=== PATIENT | female | born 1965 | race Caucasian/White ===

== ENCOUNTER 2024-09-12 15:40 | Emergency (ER) | payer SELFPAY ==
--- NOTE | ~2024-09-12 | XR_ITS ---
EXAMINATION: XR chest 2V Exam Date/Time: 09/12/2024 16:35 GRAPHICS COORDINATOR HISTORY: Cough x 12 days,+smoker Comparison: None. RESULT: Lines, tubes, and devices: None. Lungs and pleura: Hemidiaphragm flattening as can be seen with emphysematous change. Otherwise clear . Cardiomediastinal silhouette: Unremarkable. Other: No acute osseous or upper abdominal finding. IMPRESSION: No acute cardiopulmonary process. Reviewed, dictated and finalized at location K. HICS COORDINATOR
[2024-09-12 16:03] VITALS: BP 167/92; PULSE 91; RESP 20; TEMP 36.2; O2SAT 96
--- NOTE | 2024-09-12 16:31 | ED_ITS ---
HPI - URI/Sore Throat General Chief Complaint: Upper Respiratory Infection Stated Complaint: congestion,cough Time Seen by Provider: 09/12/24 16:31 Source: patient, RN notes reviewed and old records reviewed Mode of arrival: ambulatory Limitations: no limitations History of Present Illness HPI Narrative: 59-year-old female presents to the [facility] with complaints of cough and congestion for the last 12-13 days. Reports that last week she felt like everything move to or chest. Patient is a smoker. Has had increased mucus production. Denies any chest pain. Reports intermittent shortness of breath. Patient has not had any treatment for her symptoms since Monday. Prior to Monday she has tried taking Mucinex Onset (ago): day(s) (-) Treatments prior to arrival: cold medicine Related Data Allergies Allergy/AdvReac Type Severity Reaction Status Date / Time No Known Allergies Allergy Verified 09/12/24 16:37 Review of Systems Review of Systems: All systems reviewed & are unremarkable except as noted in HPI and below Constitutional: Constitutional: Reports no additional constitutional complaints ENT: Reports system reviewed and no additional complaints, except as documented Cardiovascular: Cardiovascular: Reports no additional cardiovascular complaints, Denies chest pain and Denies dyspnea Respiratory: Respiratory: Reports as per HPI, Reports chest congestion, Reports cough, Reports dyspnea and Reports wheezing Musculoskeletal: Musculoskeletal: Reports no additional musculoskeletal complaints Integumentary/Breasts: Skin/Breast: Reports system reviewed and no additional complaints, except as docu [facility] Social History Social History (Updated 09/12/24 @ 18:42 by Eleni Giron, CUSTOMER SERVICER) Smoking packs per day: 1 Smoking cigarettes per day: 20.0 Comments At the time of my signature, I reviewed and agree with the nursing past medical, surgical, social, and family history. There is no relevant family history pertinent to the patient complaint. Exam Const: General: cooperative, healthy appearing, comfortable, no acute distress, well developed, alert and well nourished Nutritional Appearance: well nourished Orientation/consciousness: patient oriented x3 Limitations: no limitations HENMT: Head: normal to inspection Ears: hearing grossly normal bilaterally, external ears normal, TM's normal bilaterally, EAC's normal, mastoids normal and no periauricular adenopathy Face and sinus: normal facial exam and face symmetric Throat: posterior oropharynx normal, uvula midline, postnasal drainage and no uvular edema Eyes: General: appearance normal, both eyes and all related structures Neck: Neck: normal visual inspection, full ROM, no lymphadenopathy and no meningeal signs Chest: Chest palpation & inspection: normal inspection of the chest Resp: Effort & Inspection: normal respiratory effort and able to speak in complete sentences Auscultation: crackles, no rales, no rhonchi and wheezes expiratory wheezes, inspiratory wheezes and throughout Cardio: Rate: regular rate Skin: General skin exam: normal color and no rashes or lesions noted Neuro: General: patient oriented x3, gait normal, moves all extremities and no meningeal signs Cognition (Neuro): normal cognition Speech: normal speech Gait exam (Neuro): Normal gait present Extrem: General: normal to inspection, full ROM, capillary refill normal and normal gait Psych: Appearance: grossly normal and well kempt Mental Status: mental status grossly normal Speech and movement: Normal speech and movement present and Clear speech present Affect: normal affect Attitude: cooperative Course Course Level of Care: Express Care Visit Vital Signs Vital signs: Vital Signs Temperature 97.2 F L 09/12/24 16:03 Pulse Rate 91 09/12/24 16:03 Respiratory Rate 20 09/12/24 16:03 Blood Pressure 167/92 H 09/12/24 16:03 Pulse Oximetry 96 09/12/24 16:03 Oxygen Delivery Room Air 09/12/24 16:03 Temperature 97.2 F L 09/12/24 16:03 Pulse Rate 91 09/12/24 16:03 Respiratory Rate 20 09/12/24 16:03 Blood Pressure 167/92 H 09/12/24 16:03 Pulse Oximetry 96 09/12/24 16:03 Oxygen Delivery Room Air 09/12/24 16:03 Reviewed MDM - URI/Sore Throat MDM Narrative Medical decision making narrative: Patient sitting comfortably in exam. Nontoxic, vitals stable. Patient in no acute distress. Patient presents with 12-13 day history of cough, congestion. Denies any chest pain currently. Denies fevers. Patient denies any medical history. Patient's chest x-ray was negative for acute findings, improvement of breath sounds after breathing treatment. Patient also verbalized that she is breathing a little bit easier. Mild expiratory wheezing noted to the left upper post breathing treatment otherwise lungs were clear but diminished. Patient appropriate for outpatient treatment and follow-up Discharge instructions reviewed with patient, as well as provided in writing per nursing staff. The instructions also include specific and strict return/GO TO THE ER as well as f/u information. All questions have been answered, and the patient deny any further questions with discharge and discharge plan. Some parts of this dictation were generated by voice recognition software and may contain typographical and/or grammatical inaccuracies. Differential Diagnosis Differential diagnosis: Likely upper respiratory infection, otitis media, sinusitis, viral infection and influenza Imaging Data Radiologist's impression: EXAMINATION: XR chest 2V Exam Date/Time: 09/12/2024 16:35 FIELD TRAINER HISTORY: Cough x 12 days,+smoker Comparison: None. RESULT: Lines, tubes, and devices: None. Lungs and pleura: Hemidiaphragm flattening as can be seen with emphysematous change. Otherwise clear. Cardiomediastinal silhouette: Unremarkable. Other: No acute osseous or upper abdominal finding. IMPRESSION: No acute cardiopulmonary process. Critical Care Time Critical Care Time Critical Care Time: No Discharge Plan Discharge Clinical Impression: Bronchitis Emphysema lung Qualifiers: Emphysema type: unspecified Qualified Code(s): J43.9 - Emphysema, unspecified Patient Disposition: Home, Self-Care Condition: Stable Instructions: Antibiotic Form, Acute Bronchitis (ED), Emphysema (ED) Additional Instructions: Take medications as prescribed A your x-ray had concerning findings for emphysema. It is important to stop smoking, follow up with primary care provider and/or licensed appraiser for further evaluation. Handouts have been given for you for primary care provider If you are having a hard time finding a physician please call our [facility] group liaison at [phone]. For new or worsening symptoms go directly to the emergency room Patient Language: Serbian Prescriptions: New prednisone 20 mg tablet See Rx Instructions .Route .COMPLEX Qty: 18 0RF Rx Instructions: Take 60 mg daily for 3 days, 40 mg daily for 3 days, 20 mg daily for 3 days doxycycline monohydrate 100 mg tablet 100 mg PO BID Qty: 14 0RF albuterol sulfate 90 mcg/actuation HFA aerosol inhaler 2 puff inhalation QID PRN (Reason: shortness of breath or wheezing) Qty: 6.7 0RF (DME) Aerochamber MV Spacer See Rx Instructions .Route Qty: 1 0RF Rx Instructions: As directed Follow-up/Referrals: Franck Morales MD [Physician] - 2 Weeks PHYSICIAN,BEHAVIORIST [Primary Care Provider] - Stand Alone Forms: Work/School Release IP Time of Disposition: 17:17
[2024-09-12] MEDS: IPRATROPIUM 0.5 MG/ALBUTEROL SULFATE 2.5 MG AMPUL.NEB 3 ML INHALATION (16:43)
== END 2024-09-12 17:25 | disposition home or self-care (01) ==
PROVIDERS: Emergency Provider Nurse Practitioner
DX: J40 Bronchitis, not specified as acute or chronic (principal); J43.9 Emphysema, unspecified; F17.210 Nicotine dependence, cigarettes, uncomplicated
CPT/HCPCS: 71046; 99203; G0463

== ENCOUNTER 2024-11-27 13:22 | Emergency (ER) | payer SELFPAY ==
--- NOTE | ~2024-11-27 | XR_ITS ---
EXAMINATION: XR wrist LT min 3V DATE: 11/27/2024 13:52 INDICATION: Left wrist pain. TECHNIQUE: 4 views of left wrist were obtained. COMPARISON: None. FINDINGS: Alignment is normal. No fracture. There is mild osteoarthritis of first carpometacarpal hermila nt and first metacarpophalangeal joint. IMPRESSION: 1. Mild polyarticular osteoarthritis. Reviewed, dictated and finalized at location B.
[2024-11-27 13:30] VITALS: BP 191/120; PULSE 103; RESP 16; TEMP 37.1; O2SAT 99
--- NOTE | 2024-11-27 13:32 | ED_ITS ---
HPI - Extremity Injury (Upper) General Chief Complaint: Extremity Injury, Upper Stated Complaint: Left Arm/Wrist Pain Time Seen by Provider: 11/27/24 13:32 Source: patient Mode of arrival: ambulatory Limitations: no limitations History of Present Illness HPI narrative: 59-year-old female presents with complaint of pain to left wrist. Patient reports that she fell 6 weeks ago and put left hand down to catch her fall. Has had pain with movement for the past 6 weeks. Has been taking ibuprofen, Advil for left wrist pain. A friend told her today that if you have a fracture you need to get that fixed . Patient's blood pressure elevated in triage. Denies history of hypertension. Does not currently have a primary care physician. No headache, chest pain or shortness of breath. All systems reviewed and negative except as noted above. Related Data Allergies Allergy/AdvReac Type Severity Reaction Status Date / Time No Known Allergies Allergy Verified 11/27/24 13:27 Review of Systems Review of Systems: CONSTITUTIONAL: Denies fever, chills, or sweats. EYES: Denies visual changes, redness, or discharge. ENT: Denies rhinorrhea, congestion, sore throat, or otalgia. CARDIOVASCULAR: Denies chest pain, palpitations, or edema. RESPIRATORY: Denies cough or dyspnea. GASTROINTESTINAL: Denies abdominal pain, nausea, vomiting, or diarrhea. GENITOURINARY: Denies dysuria or hematuria. SKIN: Denies rash or itching. MUSCULOSKELETAL: Denies back pain, joint pain, or myalgia. Reports left wrist pain. NEUROLOGIC: Denies headache, numbness, or weakness. PSYCHIATRIC: Denies anxiety or depression. All other systems reviewed are negative, except as documented in HPI. PMFSH Social History Social History (Updated 09/12/24 @ 18:42 by Eleni Giron APRN) Smoking packs per day: 1 Smoking cigarettes per day: 20.0 Comments At time of signature, agree with nursing past medical, surgical, social and family history. There is no relevant family history pertinent to the presenting complaint. Exam Narrative: GENERAL: This is a well-nourished, well-developed patient, in no apparent distress. HEAD: normocephalic, atraumatic. EYES: PERRL. Sclera clear/white. Vision is grossly intact. EARS: External ears normal NOSE: External nose normal NECK: Neck supple, non-tender without lymphadenopathy, masses or thyromegaly. CARDIOVASCULAR: Regular rate and rhythm without murmurs, gallops, or rubs. RESPIRATORY: Clear to auscultation. Breath sounds equal bilaterally. No wheezes, rales, or rhonchi. SKIN: warm, Dry, intact with no suspicious lesions or rash, good texture and turgor. NEURO: awake, alert, and oriented to person, place and time. There were no obvious focal neurologic abnormalities. EXTREMITIES: Generalized tenderness to left wrist. No deformity or bruising. Distal neurovascularly intact. Course Course Level of Care: Express Care Visit Vital Signs Vital signs: Vital Signs Temperature 37.1 C 11/27/24 13:30 Pulse Rate 103 H 11/27/24 13:30 Respiratory Rate 16 11/27/24 13:30 Blood Pressure 191/120 H 11/27/24 13:30 Pulse Oximetry 99 11/27/24 13:30 Oxygen Delivery Room Air 11/27/24 13:30 Temperature 37.1 C 11/27/24 13:30 Pulse Rate 103 H 11/27/24 13:30 Respiratory Rate 16 11/27/24 13:30 Blood Pressure 191/120 H 11/27/24 13:30 Pulse Oximetry 99 11/27/24 13:30 Oxygen Delivery Room Air 11/27/24 13:30 Reviewed MDM - Extremity Injury (Upper) MDM Narrative Medical decision making narrative: x-ray of left wrist negative for fracture. Patient's BP elevated today. Asymptomatic. Does not have a primary care physician. Will prescribe amlodipine. Recommend follow-up with primary care physician. Explain to patient that we do not treat hypertension at [facility], we do not refill medications and she needs to follow up as soon as possible for basic labs. BP 178/120 at discharge. If she develops chest pain or shortness of breath will go to the ER. Please be advised this is a medical document. It is intended for [id number] communication. It is written in medical language and may contain unfamiliar abbreviations or verbiage. Medical documents are intended to carry relevant information, facts as evident, and the clinical opinion of the practitioner at the time of the encounter. This report may have been done utilizing a voice recognition system. Attempts have been made to correct errors. However, there may be uncorrected grammatical, spelling, and recognition errors present. The file time of this note does not necessarily represent the time of service. Imaging Data My impression: agree with radiologist Radiologist's impression: EXAMINATION: XR wrist LT min 3V DATE: 11/27/2024 13:52 INDICATION: Left wrist pain. TECHNIQUE: 4 views of left wrist were obtained. COMPARISON: None. FINDINGS: Alignment is normal. No fracture. There is mild osteoarthritis of first carpometacarpal joint and first metacarpophalangeal joint. IMPRESSION: 1. Mild polyarticular osteoarthritis. Discharge Plan Discharge Clinical Impression: Asymptomatic hypertension Osteoarthritis of left wrist Qualifiers: Osteoarthritis type: unspecified Qualified Code(s): M19.032 - Primary osteoarthritis, left wrist Patient Disposition: Home, Self-Care Condition: Stable Instructions: Hypertension (ED) Additional Instructions: The x-ray of your wrist was negative for fracture. Take tylenol every 6 to 8 hours as needed for pain. Avoid NSAIDS due to high blood pressure. Take medication as prescribed to treat hypertension. Read over discharge packet to better understand the hypertension diagnosis. Lifestyle changes that will improve your blood pressure: Stop smoking. Avoid alcoholic beverages. Exercise for at least 30 minutes a day. Avoid high sodium foods/beverages. Drink at least 64 ounces of water a day. Patient Language: Mozambican Prescriptions: New amlodipine 5 mg tablet 5 mg PO DAILY 30 Days Qty: 30 0RF No Action (DME) Aerochamber MV Spacer See Rx Instructions .Route Qty: 1 0RF Rx Instructions: As directed Follow-up/Referrals: PHYSICIAN,DIRECTOR LEARNING SERVICES [Primary Care Provider] - Jonas Hopkins MD [Physician] - (establish care with a primary care physician) Time of Disposition: 14:17
== END 2024-11-27 14:23 | disposition home or self-care (01) ==
PROVIDERS: Emergency Provider Nurse Practitioner Family
DX: I10 Essential (primary) hypertension (principal); M19.032 Primary osteoarthritis, left wrist; F17.210 Nicotine dependence, cigarettes, uncomplicated
CPT/HCPCS: 73110; 99213; G0463